=== PATIENT | male | born 1985 | race Two or more races ===

== ENCOUNTER 2019-03-10 12:06 | Emergency (ER) | payer SELFPAY ==
[~2019-03-10] VITALS: Ht 172.7 cm; Wt 75.0 kg
[2019-03-10] MEDS ORDERED: SODIUM CHLORIDE 0.9% 1,000 ML IV ONE (12:31)
[2019-03-10 14:20] LABS: BASOPHILS % 0.2 % (0.0-2.0); EOSINOPHILS % 0.8 % (0.0-5.0); HEMATOCRIT. 39.6 % (42.0-52.0); HEMOGLOBIN. 13.2 g/dL (14.0-18.0); LYMPHOCYTES % 11.1 % (20.0-50.0); MEAN CORPUSCULAR HEMOGLOBIN 28.4 pg (28.0-32.0); MEAN CORPUSCULAR VOLUME 85.3 fL (80.0-94.0); MEAN PLATELET VOLUME 8.9 fl (7.4-10.4); NEUTROPHILS % 82.9 % (40.0-76.0); PLATELET 146 x1000/uL (130-400); RED BLOOD CELL COUNT 4.64 mill/uL (4.7-6.1); RED CELL DISTRIBUTION WIDTH 13.3 % (11.6-14.6)
[2019-03-10 14:24] LABS: CHLORIDE 107 mEq/L (98-107)
[2019-03-10 16:20] VITALS: BP 110/56
== END 2019-03-10 16:40 | disposition home or self-care (01) ==
LOC: ER 12:06
DX: R55 Syncope and collapse (principal); R42 Dizziness and giddiness
CPT/HCPCS: 36415; 71045; 80053; 83880; 84484; 85025; 93005; 96360; 99284; J7030